=== PATIENT | male | born 1950 | race Caucasian/White ===

== ENCOUNTER → 2021-01-14 14:50 | Outpatient (BNVA) | payer MEDICARE, MEDICAID, SELFPAY | PROVIDERS: PCP Internal Medicine; Visit Provider Internal Medicine Cardiovascular Disease | DX: I25.5 Ischemic cardiomyopathy (principal) | CPT/HCPCS: 93005; 99202 ==

== ENCOUNTER → 2021-03-18 14:42 | Outpatient (BNVA) | payer MEDICARE, MEDICAID, SELFPAY | PROVIDERS: PCP Internal Medicine; Visit Provider Internal Medicine Cardiovascular Disease ==

== ENCOUNTER → 2021-03-28 12:56 | Outpatient (REF) | payer MEDICARE, SELFPAY ==
--- NOTE | 2021-03-28 13:00 | CA_ITS ---
Transthoracic Echocardiogram Patient (Last, First, Middle): Placido Solano, Gender: Male Date of : 1950 Age: 70 Procedure Date: 03/28/2021 Procedure Type: Transthoracic Echocardiogram Location: OP Height: 165.1 cm Weight: 89.36 kg BSA: 1.97 m2 Heart Rate: bpm BP: 136 / 80 mmHg Staff Air Tactical Officer: NIA Barnard MD: Carlos Szymanski MD Symptoms: I25.5 - Ischemic cardiomyopathy Study Quality: Fair/Contrast Conclusions: - Normal left ventricular cavity size. There is mildly increased left ventricular wall thickness. The left ventricular systolic function is severely decreased. The visually estimated ejection fraction is between 20-25%. - The mid inferolateral segment is hypokinetic. - The inferior wall, the apex, apical anterior, and mid anterolateral segments are akinetic. - The apical lateral segment is dyskinetic. - Normal right ventricular cavity size and systolic function. Findings Procedure Information Contrast agent, definity, is being given per protocol without apparent complications. Left Ventricle Normal left ventricular cavity size. There is mildly increased left ventricular wall thickness. The left ventricular systolic function is severely decreased. The visually estimated ejection fraction is between 20 25%. There is evidence of regional wall motion abnormalities. Abnormal diastolic function is noted. Spectral Doppler is indicative of an impaired relaxation filling pattern. Normal left ventricular filling pressures. Wall Motion Rest Echo Findings The mid inferolateral segment is hypokinetic. The inferior wall, the apex, apical anterior, and mid anterolateral segments are akinetic. The apical lateral segment is dyskinetic. Right Ventricle Normal right ventricular cavity size and systolic function. Atria Both atria are normal in size. Aortic Valve Normal aortic valve structure and function. There is no aortic valve stenosis. There is no aortic valve regurgitation. Mitral Valve Normal mitral valve structure and function. There is trace mitral valve regurgitation. There is no mitral valve stenosis. Pulmonic Valve Normal pulmonic valve structure and function. There is trace pulmonic valve regurgitation. Tricuspid Valve Normal tricuspid valve structure and function. There is trace tricuspid valve regurgitation. Great Vessels All visible segments of the aorta are normal in size. Venous The inferior vena cava is normal in size and collapses greater than 50% with inspiration. Pericardium/Pleural There is no evidence of pericardial effusion. Prior Study Comparison No prior study available for comparison. Measurements 2D Linear Measurements IVSd: 1.10 0.6-0.9/0.6-1.0 cm LVIDd: 4.44 3.9-5.3/4.2-5.9 cm LVIDd Index: 2.25 2.4-3.2/2.2-3.1 cm/m2 LVIDs: 3.28 2.0-3.6 cm LVPWd: 1.07 0.7-1.1 cm Ao Root: 3.50 2.1-3.5 cm LA Diam: 3.40 2.7-3.8/3.0-4.0 cm LAIDs Index: 1.73 1.5-2.3 cm/m2 LV Mass: 209.33 67-162/88-224 g LV Mass Index: 106.26 43-95/49-115 g/m2 LVOT Diam: 2.00 3.0+(-)1.3 cm 2D Systolic Function EF 4C: 30.20 >55% EF 2C: 32.80 >55% EF BiP: 29.60 >55% Mitral Valve MV Pk E: 0.57 MV PK A: 0.89 MV Decel Time: 228.00 E/A: 0.60 E'Lateral: 6.85 E'Medial: 6.42 E/E' Med: 8.90 E/E' Lat: 8.30 PHT: 67.00 MVA PHT: 3.28 Decel [place]: 2.50 Aortic Valve AoV Pk Raymond: 1.49 AoV Mn Raymond: 1.01 AoV VTI: 0.29 AoV Pk Grad: 9.00 Aov Mn Grad: 5.00 KATHRYN Cont.VTI: 2.09 LVOT LVOT Pk Raymond: 1.10 LVOT Mn Raymond: 0.66 LVOT VTI: 0.19 LVOT Pk Grad: 5.00 LVOT Mn Grad: 2.00 LVOT Diam: 2.00 LVOT Area: 3.14 Diastolic Function MV Pk E: 0.57 MV Pk A: 0.89 E/A: 0.60 E'Medial: 6.42 E/E' Med: 8.90 E' Laterial: 6.85 E/E' Lat: 8.30 Right Ventricle TAPSE (mm): 1.95 TVS' Raymond: 9.25 Tricuspid Valve TR Pk Raymond: 2.38 TR Pk Grad: 23.00 RA Press: 3.00 RVSP: 26.00 Great Vessels Aorta Ao Root-2D: 3.50 2.0-3.7 cm Ao Asc: 3.10 2.1-3.4 cm Ao Arch: 2.90 Updated in Other Vendor System with Status of Final Carlos Szymanski MD electronically signed on 03/31/2021 12:40:14 PM with status of Final
== END ==
LOC: HO.CARD 12:56
PROVIDERS: PCP Internal Medicine; Visit Provider Internal Medicine Cardiovascular Disease
DX: I25.5 Ischemic cardiomyopathy (principal)
CPT/HCPCS: 93306; Q9957

== ENCOUNTER → 2021-04-08 11:34 | Outpatient (BNVA) | payer MEDICARE, SELFPAY | PROVIDERS: PCP Internal Medicine; Visit Provider Internal Medicine Cardiovascular Disease | DX: I25.5 Ischemic cardiomyopathy (principal) | CPT/HCPCS: 99212 ==

== ENCOUNTER 2021-05-23 14:06 | Outpatient (REF) | payer OTHER, MEDICAID, SELFPAY ==
[2021-05-23 15:35] LABS: Hematocrit 44.8 % (42.0-52.0); Hemoglobin 14.9 g/dl (14.0-18.0); Mean Corpuscular HGB Conc 33.3 g/dl (31.0-36.0); Mean Corpuscular Hemoglobin 30.7 pg (27.0-33.0); Mean Corpuscular Volume 92.4 fL (80.0-98.0); Mean Platelet Volume 10.5 fL (9.4-12.4); Platelet Count 210 X10*3/uL (160-400); Red Blood Count 4.85 X10*6/uL (4.60-5.80); Red Cell Distribution Width 13.1 % (11.0-16.0); White Blood Count 7.9 X10*3/uL (4.8-10.8)
[2021-05-23 15:41] LABS: INTERNATIONAL NORM RATIO 1.3 (0.9-1.1); Prothrombin Time 14.9 SEC (9.9-13.0)
[2021-05-23 15:57] LABS: Anion Gap 10 (12-20); Blood Urea Nitrogen 15 mg/dL (9-16); Calcium 9.5 mg/dL (8.4-10.2); Carbon Dioxide 31 mmol/L (22-29); Chloride 106 mmol/L (96-108); Estimated Glomerular Filt Rate > 60; Glucose Random 88 mg/dL (60-115); Potassium 4.5 mmol/L (3.3-5.1); Sodium 142 mmol/L (135-145)
== END 2021-05-23 14:07 | disposition home or self-care (01) ==
LOC: HO.LAB 14:06
PROVIDERS: PCP Internal Medicine; Visit Provider Internal Medicine Cardiovascular Disease
DX: I25.5 Ischemic cardiomyopathy (principal); Z83.3 Family history of diabetes mellitus; Z82.49 Family history of ischemic heart disease and other diseases of the circulatory system; Z79.899 Other long term (current) drug therapy
CPT/HCPCS: 36415; 80048; 85027; 85610; 99212

== ENCOUNTER → 2021-06-13 12:50 | Outpatient (BNVA) | payer OTHER, MEDICAID, SELFPAY | PROVIDERS: PCP Internal Medicine; Visit Provider Nurse Practitioner Family | DX: I25.10 Atherosclerotic heart disease of native coronary artery without angina pectoris (principal); I25.5 Ischemic cardiomyopathy; I25.2 Old myocardial infarction; Z98.890 Other specified postprocedural states | CPT/HCPCS: 99212 ==

== ENCOUNTER → 2021-09-19 12:18 | Outpatient (BNVA) | payer OTHER, MEDICAID, SELFPAY | PROVIDERS: PCP Internal Medicine; Visit Provider Internal Medicine Cardiovascular Disease | DX: I25.5 Ischemic cardiomyopathy (principal); I25.10 Atherosclerotic heart disease of native coronary artery without angina pectoris; I48.0 Paroxysmal atrial fibrillation | CPT/HCPCS: 93005; 99212 ==

== ENCOUNTER → 2021-12-17 07:37 | Outpatient (REF) | payer OTHER, SELFPAY ==
--- NOTE | 2021-12-17 07:39 | CA_ITS ---
Transthoracic Echocardiogram Patient (Last, First, Middle): Placido Solano, Gender: Male Date of : 1950 Age: 71 Procedure Date: 12/17/2021 Procedure Type: Transthoracic Echocardiogram Location: OP Height: 162.56 cm Weight: 80.74 kg BSA: 1.86 m2 Heart Rate: bpm BP: 120 / 70 mmHg Stock Broker: YEMI Referring MD: Carlos Szymanski MD Contract Accountant: Carlos Szymanski MD Symptoms: I25.5 - Ischemic cardiomyopathy Study Quality: Fair/Contrast Conclusions: - Normal left ventricular cavity size. There is mildly increased left ventricular wall thickness. The left ventricular systolic function is moderate to severely decreased. The visually estimated ejection fraction is between 25-30%. - The basal anterior and mid anterior segments are hypokinetic. - The anterolateral wall, the apical anterior, apical inferior, mid inferior, and mid inferolateral segments are akinetic. - The apex and apical lateral segments are dyskinetic. - Normal right ventricular cavity size and systolic function. - Small plaque is seen in the sino tubular ridge. Findings Procedure Information Contrast agent, definity, is being given per protocol without apparent complications. Left Ventricle Normal left ventricular cavity size. There is mildly increased left ventricular wall thickness. The left ventricular systolic function is moderate to severely decreased. The visually estimated ejection fraction is between 25-30%. Abnormal diastolic function is noted. Spectral Doppler is indicative of an impaired relaxation filling pattern. E/E prime ratio is between 8 and 15 consistent with indeterminate filling pressures. Wall Motion Rest Echo Findings The basal anterior and mid anterior segments are hypokinetic. The anterolateral wall, the apical anterior, apical inferior, mid inferior, and mid inferolateral segments are akinetic. The apex and apical lateral segments are dyskinetic. Right Ventricle Normal right ventricular cavity size and systolic function. Atria The left atrium is mildly dilated. The right atrium is normal in size. Aortic Valve Normal aortic valve structure and function. There is no aortic valve stenosis. There is no aortic valve regurgitation. Mitral Valve Normal mitral valve structure and function. There is trace mitral valve regurgitation. There is no mitral valve stenosis. Pulmonic Valve The pulmonic valve is likely normal. Tricuspid Valve Normal tricuspid valve structure and function. There is no tricuspid valve regurgitation. Normal right atrial pressure. There is no evidence of pulmonary hypertension. Great Vessels All visible segments of the aorta are normal in size. Small plaque is seen in the sino tubular ridge. The visualized portions of the pulmonary artery and branches are normal. Venous The inferior vena cava is normal in size and collapses greater than 50% with inspiration. Pericardium/Pleural There is no evidence of pericardial effusion. Prior Study Comparison No significant change compared to prior study dated: 03/28/2021. Measurements 2D Linear Measurements IVSd: 1.08 0.6-0.9/0.6-1.0 cm LVIDd: 5.43 3.9-5.3/4.2-5.9 cm LVIDd Index: 2.92 2.4-3.2/2.2-3.1 cm/m2 LVIDs: 4.64 2.0-3.6 cm LVPWd: 1.09 0.7-1.1 cm LA Diam: 3.20 2.7-3.8/3.0-4.0 cm LAIDs Index: 1.72 1.5-2.3 cm/m2 LV Mass: 290.03 67-162/88-224 g LV Mass Index: 155.93 43-95/49-115 g/m2 LVOT Diam: 2.00 3.0+(-)1.3 cm 2D Systolic Function EF 4C: 32.30 >55% EF 2C: 40.40 >55% EF BiP: 37.50 >55% Mitral Valve MV Pk E: 0.66 MV PK A: 0.75 MV Decel Time: 259.00 E/A: 0.90 E'Lateral: 7.62 E'Medial: 5.87 E/E' Med: 11.30 E/E' Lat: 8.70 PHT: 76.00 MVA PHT: 2.89 Decel [place]: 2.57 Aortic Valve AoV Pk Raymond: 1.56 AoV Mn Raymond: 1.03 AoV VTI: 0.36 AoV Pk Grad: 10.00 Aov Mn Grad: 5.00 KATHRYN Cont.VTI: 1.86 LVOT LVOT Pk Raymond: 0.98 LVOT Mn Raymond: 0.61 LVOT VTI: 0.21 LVOT Pk Grad: 4.00 LVOT Mn Grad: 2.00 LVOT Diam: 2.00 LVOT Area: 3.14 Diastolic Function MV Pk E: 0.66 MV Pk A: 0.75 E/A: 0.90 E'Medial: 5.87 E/E' Med: 11.30 E' Laterial: 7.62 E/E' Lat: 8.70 Right Ventricle TAPSE (mm): 25.40 TVS' Raymond: 9.25 Tricuspid Valve TR Pk Raymond: 2.28 TR Pk Grad: 21.00 RA Press: 3.00 RVSP: 24.00 Great Vessels Aorta Sinus of Valsalva: 3.48 2.0-3.[address] [place]: 3.12 1.7-3.4 cm Ao Asc: 3.00 2.1-3.4 cm Updated in Other Vendor System with Status of Final Carlos Szymanski MD electronically signed on 12/18/2021 11:02:44 PM with status of Final
== END ==
LOC: HO.CARD 07:37
PROVIDERS: PCP Internal Medicine; Visit Provider Internal Medicine Cardiovascular Disease
DX: I25.5 Ischemic cardiomyopathy (principal)
CPT/HCPCS: 93306; Q9957

== ENCOUNTER → 2022-02-12 12:00 | Outpatient (BNVA) | payer OTHER, SELFPAY | PROVIDERS: PCP Internal Medicine; Visit Provider Internal Medicine Cardiovascular Disease | DX: G47.30 Sleep apnea, unspecified (principal); I48.0 Paroxysmal atrial fibrillation; I25.5 Ischemic cardiomyopathy | CPT/HCPCS: 99212 ==

== ENCOUNTER → 2022-05-05 19:30 | Outpatient (REF) | payer OTHER, SELFPAY | LOC: HO.SL 19:30 | PROVIDERS: Visit Provider Internal Medicine Cardiovascular Disease | DX: G47.33 Obstructive sleep apnea (adult) (pediatric) (principal) | CPT/HCPCS: 95811 ==

== ENCOUNTER → 2022-05-12 12:31 | Outpatient (BNVA) | payer OTHER, SELFPAY | PROVIDERS: PCP Internal Medicine; Visit Provider Internal Medicine Cardiovascular Disease | DX: I48.0 Paroxysmal atrial fibrillation (principal); I25.5 Ischemic cardiomyopathy | CPT/HCPCS: 93005; 99212 ==

== ENCOUNTER → 2022-09-17 13:37 | Outpatient (BNVA) | payer OTHER, SELFPAY | PROVIDERS: PCP Internal Medicine; Referring Provider Internal Medicine; Visit Provider Internal Medicine Cardiovascular Disease | DX: I48.0 Paroxysmal atrial fibrillation (principal); I25.10 Atherosclerotic heart disease of native coronary artery without angina pectoris; I25.5 Ischemic cardiomyopathy | CPT/HCPCS: 99212 ==

== ENCOUNTER 2023-12-28 13:14 | Outpatient (AMB) | payer OTHER, SELFPAY ==
[2023-12-28 13:16] VITALS: BP 122/80; PULSE 55; BMI 29.5
--- NOTE | 2023-12-28 13:16 | A.OFFVIS_ITS ---
Vital Signs 12/28/23 13:16 Height 5 ft 4 in Weight 171 lb 15.369 oz BMI 29.5 BP 122/80 Blood Pressure Location Rt brachial Position Sitting Pulse 55 Pulse Source Monitor Intake Visit Reasons: over due f/u sob On Call Pharmacy Technician Required: No Scrap Iron Loader: Scrap Iron Loader Present Allergies No Known Allergies Allergy (Verified 12/28/23 13:20) Medication List - Last Reconciled 12/28/23 by Oksana Chavis NP-C apixaban (Eliquis) 5 mg PO BID atorvastatin 80 mg PO BEDTIME clopidogrel 75 mg PO DAILY digoxin 125 mcg PO .m, w,f digoxin 125 mcg PO DAILY furosemide (Lasix) 20 mg PO DAILY metoprolol succinate ER (Toprol XL) 50 mg PO BID metoprolol tartrate 50 mg PO BID nitroglycerin mg sublingual pantoprazole 40 mg PO DAILY spironolactone 25 mg PO DAILY HPI HPI over due f/u sob: Details: Placido is a 73-year-old male with past medical history of hyperlipidemia, CAD, NSTEMI, coronary stents, ischemic cardiomyopathy, ICD who presents for follow- up. His last prior visit to our office was 09/17/2022. He did move to [place] however is now back in [place] and currently residing in [place]. He has not been able to get a waste removalist in that area as of yet. Today he reports he has been getting some mid chest discomfort at rest and with activity. It seems this is a newer symptom for him. He has chronic soreness at the site of his ICD with palpation and movement of his left arm. He says it has been like this since the device was put in. He is not having any concerning shortness of breath, PND, orthopnea or edema. No palpitations, lightheadedness, presyncope, syncope. He walks routinely for activity. He takes his meds as directed however Entresto is no longer on his list. He is unsure what happened to that medication. Niece is present and assisting with Norwegian translation at their request. [facility] Medical History Post-VT pericarditis Ischemic cardiomyopathy Surgical History Status post cardiac catheterization History of hand surgery Family History Mother Diabetes Father Heart disease Social History Alcohol intake: former Patient Tobacco Use Status: Never used Tobacco Review of Systems Const All systems reviewed & are unremarkable except as noted in HPI and below ENT Reports dizziness Card Details: discomfort around pacemaker site Reports chest pain, Denies chest pain at rest, Denies chest pain with activity, Denies rapid heart rate, Denies pedal edema, Denies edema, Denies leg edema, Denies lightheadedness, Denies palpitations, Reports dyspnea, Reports dyspnea on exertion and Denies orthopnea Resp Denies cough, Reports dyspnea and Reports dyspnea on exertion GI Denies hematochezia and Denies change in stool character Musc Denies abnormal gait, Reports limited range of motion, Reports muscle cramps, Denies muscle weakness, Denies numbness, Denies radiating pain into limb, Denies stiffness and Denies tingling Neuro Denies abnormal gait, Reports dizziness, Denies numbness and Denies tingling Endo Denies palpitations Physical Exam Vital Signs: Last Vital Signs Pulse 55 12/28/23 13:16 BP 122/80 12/28/23 13:16 BMI result Body Mass Index 29.5 Const General: cooperative, healthy appearing, comfortable and no acute distress Orientation/consciousness: patient oriented x3 Neck Neck: Yes normal visual inspection and Yes no JVD Chest Other: pacer site appears normal - he reports tenderness to palpation around pocket and discomfort when raising left arm Chest palpation & inspection: normal inspection of the chest Resp Effort & Inspection: normal respiratory effort Auscultation: clear to auscultation bilaterally, no rales, no rhonchi and no wheezes Cardio Jugular venous distension: no JVD Rate: regular rate Rhythm: regular rhythm Heart sounds: S1 normal heart sound present, S2 normal heart sound present, no murmurs and no rubs Neuro General: patient oriented x3 Extrem General: Yes normal to inspection, No no pedal edema and No calf tenderness Psych Appearance: grossly normal Mental Status: mental status grossly normal Speech and movement: Normal speech and movement present Office Procedures Cardiac Device Check Cardiac Device Check Details: Front Appronik single lead ICD interrogation done today showing battery 100%, RV threshold normal, VVI mode, low rate 40, pacing 0%, 1 recent VT 1 zone, SVT noted, brief durations 77043-[id number] Cardiac Device Check, single lead implantable defibrillator Procedure code (CPT) selection complete EKG Details: Today, read by me, sinus bradycardia, lateral and inferior infarcts, unchanged from last EKG on 05/12/2022, rate 55, prior EKG had rate 81. [id number], Complete Assessment & Plan Assessment & Plan (1) CAD (coronary artery disease): Code(s): I25.10 - Atherosclerotic heart disease of [place] coronary artery without angina pectoris Category: Medical Plan: History of CAD. He had NSTEMI while in [facility] with LAD and left circumflex PCI, RCA was not intervened and described as small-vessel. Echocardiogram done here had shown severely reduced EF 20-25%. He then underwent diagnostic cardiac catheterization on 05/31/2021 which showed patent LAD stent, occluded OM 2 in the in stent segment, right PDA mid 60% stenosis. He was then managed medically and underwent ICD placement. His last visit to our office was 09/17/2022. He then moved to [place] and recently came back to [place]. He now resides in [place] but does not have a waste removalist. Today he reports he has been getting some mid chest discomfort however it occurs with rest and activity. EKG done today shows sinus bradycardia, prior lateral and inferior infarct, overall unchanged from prior EKG with the exception of rate, currently 55, prior EKG rate 81. He is agreeable to have testing done at our hospital. Will check an echocardiogram to reassess EF and wall motion. Will check an exercise nuclear stress test to evaluate for ischemia. Will have him continue on Plavix. He is not on aspirin as he is on Eliquis. Continue high-dose atorvastatin. Continue metoprolol. Signs and symptoms of angina reviewed. Emergency care if needed for symptoms. Cardiology follow-up 3 months, sooner if needed or if test warrant. (2) Ischemic cardiomyopathy: Code(s): I25.5 - Ischemic cardiomyopathy Category: Medical Plan: History of ischemic cardiomyopathy. EF known to be 25-30% in spite of neurohormonal modulation. ICD in place He does not appear fluid overloaded on examination. His med list includes Lasix 20 mg daily. He previously had been on Entresto but no longer is. He is not sure what happened to this medication. Labs from 11/17/2023 showed potassium 4.4, creatinine 0.77. Will restart Entresto. BMP when he comes for cardiac testing. Continue metoprolol XL. Signs and symptoms of heart failure reviewed with him. (3) PAF (paroxysmal atrial fibrillation): Code(s): I48.0 - Paroxysmal atrial fibrillation Category: Medical Plan: History of paroxysmal atrial fibrillation. No clear AFib seen on device interrogation today. He does have a single lead device making this assessment more challenging. Pulse is regular on clinical exam. He is not noticing any heart palpitations. He is on metoprolol for heart rate control and he is on Eliquis for anticoagulation. No bleeding issues reported (4) Status post cardiac catheterization: Comment: 05/31/2021, left main mild luminal irregularities, less than 30% stenosis, lad m ild luminal irregularities, less than 30% stenosis, patent stent, left circumflex mild luminal irregularities, occluded OM 2 in stent segment, RCA mid right PDA 60% stenosis Code(s): Z98.890 - Other specified postprocedural states Category: Surgical Plan: As above (5) Chest discomfort: Code(s): R07.89 - Other chest pain Category: Medical Plan: As above (6) ICD (implantable cardioverter-defibrillator) in place: Code(s): Z95.810 - Presence of automatic (implantable) cardiac defibrillator Category: Medical Plan: Biotronik single-chamber ICD in place. Interrogation done today by me shows no VT/VF, shocks. He does have brief SVT, elevated rates. He does not have a remote monitor. Will make arrangements to have a monitor sent to him. Plan Time spent on chart review, documentation, interview and assessment Orders: Orders CA echo transesophageal w con Today I25.10 - Atherosclerotic heart disease of [place] coronary artery without angina pectoris, I48.0 - Paroxysmal atrial fibrillation NM cardiolite stress test Today R07.89 - Other chest pain CA stress test Today R07.89 - Other chest pain Coding Level of Care Code Est Pt Level 4 (75852) Diagnoses CAD (coronary artery disease) I25.10 Ischemic cardiomyopathy I25.5 PAF (paroxysmal atrial fibrillation) I48.0 Status post cardiac catheterization Z98.890 Chest discomfort R07.89 ICD (implantable cardioverter-defibrillator) in place Z95.810 CPT Codes Cardiac Device Check - Cardiac Device 4: [id number] Cardiac Device Check, single lead implantable defibrillator ([id number]) EKG - CPT: 76197-[id number], Complete ([id number]) Time Spent (min) 36
== END 2023-12-28 14:07 | disposition home or self-care (01) ==
PROVIDERS: PCP Internal Medicine; Visit Provider Nurse Practitioner Family
DX: I25.10 Atherosclerotic heart disease of native coronary artery without angina pectoris (principal); I25.5 Ischemic cardiomyopathy; I48.0 Paroxysmal atrial fibrillation; Z98.890 Other specified postprocedural states; R07.89 Other chest pain; Z95.810 Presence of automatic (implantable) cardiac defibrillator
CPT/HCPCS: 93010; 93282; 99214

== ENCOUNTER → 2023-12-28 13:14 | Outpatient (BNVA) | payer OTHER, SELFPAY | PROVIDERS: PCP Internal Medicine; Visit Provider Nurse Practitioner Family | DX: I25.10 Atherosclerotic heart disease of native coronary artery without angina pectoris (principal); I25.2 Old myocardial infarction; I25.5 Ischemic cardiomyopathy; I48.0 Paroxysmal atrial fibrillation; E78.5 Hyperlipidemia, unspecified; R07.89 Other chest pain; Z95.810 Presence of automatic (implantable) cardiac defibrillator; Z98.890 Other specified postprocedural states | CPT/HCPCS: 93005; 99212 ==

== ENCOUNTER → 2024-01-08 23:59 | Outpatient (BNV) | payer OTHER, SELFPAY ==
--- NOTE | 2024-01-15 18:23 | MHC.OFFVIS ---
Intake Visit Reasons: Remote device check- Biotronik Allergies No Known Allergies Allergy (Verified 12/28/23 13:20) [facility] Medical History Post-MT pericarditis Ischemic cardiomyopathy Surgical History Status post cardiac catheterization History of hand surgery Family History Mother Diabetes Father Heart disease Social History Alcohol intake: former Patient Tobacco Use Status: Never used Tobacco Office Procedures Cardiac Device Check Cardiac Device Check Details: ICD Good battery life Episodes of atrial fibrillation recorded. [id number] Cardiac Device Check, dual lead implantable defibrillator Procedure code (CPT) selection complete Assessment & Plan Assessment & Plan (1) ICD (implantable cardioverter-defibrillator) in place: Code(s): Z95.810 - Presence of automatic (implantable) cardiac defibrillator Category: Medical Plan: Orders: Orders AMB Cardiac Device Follow-up 01/08/24 Z95.810 - Presence of automatic (implantable) cardiac defibrillator Coding Level of Care Code Procedure Only Diagnoses ICD (implantable cardioverter-defibrillator) in place Z95.810 CPT Codes Cardiac Device Check - Cardiac Device 5: [id number] Cardiac Device Check, dual lead implantable defibrillator ([id number])
== END ==
PROVIDERS: PCP Internal Medicine; Visit Provider Internal Medicine Cardiovascular Disease
DX: I48.91 Unspecified atrial fibrillation (principal); Z95.810 Presence of automatic (implantable) cardiac defibrillator
CPT/HCPCS: 93295

== ENCOUNTER → 2024-02-09 07:40 | Outpatient (REF) | payer OTHER, SELFPAY ==
--- NOTE | ~2024-02-09 | NM_ITS ---
Lexiscan Myocardial perfusion study Indication: Cardiomyopathy Technique: The patient was brought in for a Lexiscan perfusion study on 02/09/2024 and was injected 0.4 mg of Lexiscan intravenously. Within a minute of this injection 24 mCi of sestamibi was given intravenously. Images were obtained using the SPECT gamma camera interlaced with the gating device. Images were obtained in supine position. Resting perfusion study was performed on 02/16/2024. Patient was administered 24 mCi of sestamibi intravenously at rest. Images were then obtained in supine position. Total DLP 136 mGy-cm. Images were processed with the software and compared side to side in short axis, horizontal long axis and vertical long axis views. Findings: Raw aquisition reviewed. Arms by the patient's side. The stress perfusion study showed absent tracer uptake in most of the inferior wall, adjacent inferolateral wall as well as mid to distal part of lateral wall, apex. No major change with CT attenuation correction. The gated study shows diminished LV systolic function.. LVEF calculated to be 50% but might be inaccurate. LV cavity is dilated in size. The gated study shows absent wall thickening and contractility of the involved segments. Resting study shows absent tracer uptake similar to the stress acquisition. Gating at rest reveals absent wall motion in the involved segments. Gated LVEF correlation seems inaccurate. The findings are consistent with fixed perfusion defect involving most of the inferior wall, inferolateral wall, mid to distal lateral wall including the apex.. WV/WV cardiolite stress test Impression: 1. Myocardial perfusion imaging study shows large transmural infarct involving most of inferior wall, inferolateral wall, mid to distal lateral wall, apex. 2. Gated LVEF of 50% during stress and 55% during rest but likely not accurate. Correlate with echocardiogram. 3. Transient ischemic dilatation not present. EKG component of the test reported separately. Electronically signed by: Dallin Jaramillo MD 02/16/2024 04:21 PM EDT
--- NOTE | 2024-02-09 07:48 | CA_ITS ---
Acquisition Time: 2024-02-09 08:35:13 Total Exercise Time: 00:02:00 Test Indications: Chest Pain Medications: ELIQUIS ATORVASTATIN CLOPIDOGREL DIGOXIN FUROSEMIDE METOPROLOL PANTOPRAZOLE SPIRONALACTONE Protocol: LEXISCAN Max HR: 096 BPM 64% of Pred: 148 BPM Max BP: 124/068 mmHG Max Work Load: 1.6 METS Pharmacological stress test with Lexiscan injection, while walking slow on treadmill, without anginal symptoms, without arrythmia, with normotensive response to injection, with nondiagnostic EKG for ischemia. Nuclear images pending. Test reviewed with Dr Szymanski. Referred By: Oksana Chavis Overread By: [facility]
--- NOTE | 2024-02-09 07:48 | CA_ITS ---
Transthoracic Echocardiogram Patient (Last, First, Middle): Placido Solano, Gender: Male Date of : 1950 Age: 73 Procedure Date: 02/09/2024 Procedure Type: Transthoracic Echocardiogram Location: OP Height: 162.56 cm Weight: 80.74 kg BSA: 1.86 m2 Heart Rate: bpm BP: 104 / 60 mmHg Wig Comber: TO Referring MD: Oksana Chavis CUSTOMER EXPERIENCE SPECIALISTFredy Symptoms: I25.10 - Atherosclerotic heart disease of [place] coronary artery without... Study Quality: Adequate w contrast ECG Rhythm: Sinus Conclusions: - The left ventricular systolic function is moderately decreased. The visually estimated ejection fraction is between 35-40%. - Wall motion abnormalities related to underlying coronary disease. Findings Procedure Information Contrast agent, definity, is being given per protocol without apparent complications. Left Ventricle Normal left ventricular cavity size. There is normal left ventricular wall thickness. The left ventricular systolic function is moderately decreased. The visually estimated ejection fraction is between 35-40%. There is evidence of regional wall motion abnormalities. Diastolic function is normal for age. Wall Motion Rest Echo Findings The basal inferolateral segment is hypokinetic. The apical anterior, mid inferior, apical lateral, mid anterolateral, and mid inferolateral segments are akinetic. Right Ventricle Normal right ventricular cavity size. There is low normal right ventricular systolic function. There is an ICD wire seen in the right ventricle. Atria The left atrium is mildly dilated. The right atrium is normal in size. Aortic Valve There is a normal trileaflet aortic valve. There is no aortic valve stenosis. There is no aortic valve regurgitation. Mitral Valve The mitral valve appears normal. There is trace mitral valve regurgitation. There is no mitral valve stenosis. Pulmonic Valve The pulmonic valve is likely normal. Tricuspid Valve There is trace tricuspid valve regurgitation. There is no evidence of pulmonary hypertension. Great Vessels The asc aorta is normal in size. Small plaque is seen in the sino tubular ridge. Venous The inferior vena cava is normal in size and collapses greater than 50% with inspiration. Pericardium/Pleural There is no evidence of pericardial effusion. Prior Study Comparison Changes noted compared to prior study dated: 12/17/2021. LVEF slightly higher than previously described. Inter-observer variablity could play a role. Measurements 2D Linear Measurements IVSd: 1.00 0.6-0.9/0.6-1.0 cm LVIDd: 5.19 3.9-5.3/4.2-5.9 cm LVIDd Index: 2.79 2.4-3.2/2.2-3.1 cm/m2 LVIDs: 3.36 2.0-3.6 cm LVPWd: 0.84 0.7-1.1 cm LA Diam: 3.10 2.7-3.8/3.0-4.0 cm LAIDs Index: 1.67 1.5-2.3 cm/m2 LV Mass: 215.63 67-162/88-224 g LV Mass Index: 115.93 43-95/49-115 g/m2 LVOT Diam: 2.10 3.0+(-)1.3 cm 2D Systolic Function EF 4C: 50.10 >55% EF 2C: 44.80 >55% EF BiP: 47.90 >55% Mitral Valve MV Pk E: 0.61 MV PK A: 0.44 MV Decel Time: 205.00 E/A: 1.40 E'Lateral: 8.16 E'Medial: 7.62 E/E' Med: 8.00 E/E' Lat: 7.50 PHT: 60.00 MVA PHT: 3.67 Decel [place]: 2.97 Aortic Valve AoV Pk Raymond: 1.54 AoV Mn Raymond: 1.09 AoV VTI: 0.35 AoV Pk Grad: 9.00 Aov Mn Grad: 5.00 KATHRYN Cont.VTI: 2.16 LVOT LVOT Pk Raymond: 0.99 LVOT Mn Raymond: 0.62 LVOT VTI: 0.22 LVOT Pk Grad: 4.00 LVOT Mn Grad: 2.00 LVOT Diam: 2.10 LVOT Area: 3.46 Diastolic Function MV Pk E: 0.61 MV Pk A: 0.44 E/A: 1.40 E'Medial: 7.62 E/E' Med: 8.00 E' Laterial: 8.16 E/E' Lat: 7.50 Right Ventricle TAPSE (mm): 22.20 TVS' Raymond: 9.90 Tricuspid Valve TR Pk Raymond: 2.20 TR Pk Grad: 19.00 RA Press: 3.00 RVSP: 22.00 Great Vessels Aorta Sinus of Valsalva: 3.51 2.0-3.5 cm Ao Asc: 3.40 2.1-3.4 cm Updated in Other Vendor System with Status of Final Dallin Jaramillo MD electronically signed on 02/09/2024 4:11:37 PM with status of Final
[2024-02-09 11:00] LABS: Anion Gap 10 (12-20); Blood Urea Nitrogen 11 mg/dL (9-16); Calcium 9.6 mg/dL (8.4-10.2); Carbon Dioxide 29 mmol/L (22-29); Chloride 105 mmol/L (96-108); Estimated Glomerular Filt Rate > 60; Glucose Random 112 mg/dL (60-115); Potassium 4.1 mmol/L (3.3-5.1); Sodium 140 mmol/L (135-145)
== END ==
LOC: HO.CARD 07:40
PROVIDERS: PCP Internal Medicine; Visit Provider Nurse Practitioner Family
DX: I25.10 Atherosclerotic heart disease of native coronary artery without angina pectoris (principal); I48.0 Paroxysmal atrial fibrillation; R07.89 Other chest pain; I25.5 Ischemic cardiomyopathy
CPT/HCPCS: 36415; 78452; 80048; 93017; 93306; A9500; J0280; J2785; Q9957

== ENCOUNTER → 2024-02-09 07:48 | Outpatient (BNV) | payer OTHER, SELFPAY | PROVIDERS: PCP Internal Medicine; Visit Provider Internal Medicine | DX: I25.10 Atherosclerotic heart disease of native coronary artery without angina pectoris (principal) | CPT/HCPCS: 93306 ==

== ENCOUNTER → 2024-04-08 23:59 | Outpatient (BNV) | payer OTHER, SELFPAY ==
--- NOTE | 2024-04-10 14:39 | A.OFFVIS_ITS ---
Intake Visit Reasons: Remote device check- [employer] Allergies No Known Allergies Allergy (Verified 12/28/23 13:20) [facility] [place] Medical History Post-AR pericarditis Ischemic cardiomyopathy Surgical History Status post cardiac catheterization History of hand surgery Family History Mother Diabetes Father Heart disease Social History Alcohol intake: former Patient Tobacco Use Status: Never used Tobacco Office Procedures Cardiac Device Check Cardiac Device Check Details: ICD Good battery life No new alerts. [id number] Cardiac Device Check, multi lead implantable defibrillator Procedure code (CPT) selection complete Assessment & Plan Assessment & Plan (1) ICD (implantable cardioverter-defibrillator) in place: Code(s): Z95.810 - Presence of automatic (implantable) cardiac defibrillator Category: Medical Plan Orders: Orders AMB Cardiac Device Follow-up 04/08/24 Z95.810 - Presence of automatic (implantable) cardiac defibrillator Coding Level of Care Code Procedure Only Diagnoses ICD (implantable cardioverter-defibrillator) in place Z95.810 CPT Codes Cardiac Device Check - Cardiac Device 6: 61361-IB Cardiac Device Check, multi lead implantable defibrillator ([id number])
== END ==
PROVIDERS: PCP Internal Medicine; Visit Provider Internal Medicine Cardiovascular Disease
DX: Z45.02 Encounter for adjustment and management of automatic implantable cardiac defibrillator (principal)
CPT/HCPCS: 93295

== ENCOUNTER → 2024-05-05 23:59 | Outpatient (BNV) | payer OTHER, SELFPAY ==
--- NOTE | 2024-05-20 18:01 | MHC.OFFVIS ---
Intake Visit Reasons: Remote device check- [employer]ron[employer] Allergies No Known Allergies Allergy (Verified 12/28/23 13:20) [facility] Medical History Post-GA pericarditis Ischemic cardiomyopathy Surgical History Status post cardiac catheterization History of hand surgery Family History Mother Diabetes Father Heart disease Social History Alcohol intake: former Patient Tobacco Use Status: Never used Tobacco Office Procedures Cardiac Device Check Cardiac Device Check Details: ICD Battery life good. No new alerts. [id number] Cardiac Device Check, leadless/single lead pacemaker Procedure code (CPT) selection complete Assessment & Plan Assessment & Plan (1) ICD (implantable cardioverter-defibrillator) in place: Code(s): Z95.810 - Presence of automatic (implantable) cardiac defibrillator Category: Medical Plan Coding Level of Care Code Procedure Only Diagnoses ICD (implantable cardioverter-defibrillator) in place Z95.810 CPT Codes Cardiac Device Check - Cardiac Device 1: 79690-OE Cardiac Device Check, leadless/single lead pacemaker ([id number])
== END ==
PROVIDERS: PCP Internal Medicine; Visit Provider Internal Medicine Cardiovascular Disease
DX: Z45.02 Encounter for adjustment and management of automatic implantable cardiac defibrillator (principal)
CPT/HCPCS: 93295